=== PATIENT | male | born 1975 | race Caucasian/White ===

== ENCOUNTER 2017-08-09 09:42 | Day surgery (SDC) | payer MEDICAID ==
[2014-10-20 22:16] VITALS: BMI 26.7
[2017-08-09] MEDS ORDERED: Lactated Ringer's 1,000 ML IV ONE (10:16)
[2017-08-09] MEDS ORDERED: Lidocaine 2% MPF (5 ml) Inj ONE (10:55)
[2017-08-09] MEDS ORDERED: Propofol 10 mg/ml Inj (20 ML) ONE (10:55)
[2017-08-09 11:15] VITALS: TEMP 96.6
[2017-08-09 11:27] VITALS: BP 109/65; PULSE 59; RESP 14; O2SAT 100
== END 2017-08-09 11:37 | disposition home or self-care (01) ==
LOC: H.ENDO 09:42
PROVIDERS: ATTEND Internal Medicine Gastroenterology
DX: R10.13 Epigastric pain (principal); B96.81 Helicobacter pylori [H. pylori] as the cause of diseases classified elsewhere; K29.70 Gastritis, unspecified, without bleeding; K29.50 Unspecified chronic gastritis without bleeding; K21.9 Gastro-esophageal reflux disease without esophagitis
CPT/HCPCS: 43239; 88305; 88342; J2704; J7120

== ENCOUNTER 2017-08-20 23:01 | Emergency (ER) | payer MEDICAID ==
[2017-08-20 23:01] VITALS: BMI 26.7
[2017-08-20 23:25] VITALS: BP 107/62; PULSE 77; RESP 16; TEMP 97.8; O2SAT 98
--- NOTE | 2017-08-20 23:48 | ED PDOC ---
HPI: Chest Pain Time Seen by Provider: 08/20/17 23:18 Chief Complaint (Nursing): Chest Pain Chief Complaint (Provider): palpitations History Per: Patient History/Exam Limitations: no limitations Onset/Duration Of Symptoms: Days (4), Persistent Additional Complaint(s): Pt reports that for about 4 months he has had sudden onset midline lower chest pains that occur within an hour of sleeping and wakes him up. Associated with tachycardia, lightheadedness, shortness of breath, and feelings of doom. In addition during the day he has been having episodes of near syncope during the day, about twice a week. Lasts for about 5-10 minutes. He has to sit down, drink water and rest, which occur anytime during the day. But he does not ever black out. Workup with clinic so far involved endoscopy which only demonstrated gastritis. Has been recommended to have a sleep study. Symptoms now persist for 4 days, and chest pain continuous. He also reports that now when he goes to sleep, the feeling recurs over the course of the evening and not just one time. Reports he is afraid of going to sleep. Denies unintentional weight loss or fever. Denies alcohol or drug use. Denies any stressor at home or at work. Denies depression or anxiety, except about this issue. PMD [facility] [place] Past Medical History Reviewed: Historical Data, Nursing Documentation, Vital Signs Vital Signs: Last Vital Signs Temp 97.8 F 08/20/17 23:21 Pulse 77 08/20/17 23:21 Resp 16 08/20/17 23:21 BP 107/62 08/20/17 23:21 Pulse Ox 98 08/21/17 01:03 - Medical History PMH: No Chronic Diseases - Surgical History Surgical History: No Surg Hx - Family History Family History: States: No Known Family Hx - Social History Current smoker - smoking cessation education provided: No Alcohol: None Drugs: Denies - Home Medications Home Medications: Ambulatory Orders Medication Instructions Recorded No Known Home Med 08/09/17 - Allergies Allergies/Adverse Reactions: Allergies Allergy/AdvReac Type Severity Reaction Status Date / Time No Known Allergies Allergy Verified 08/09/17 10:19 Review of Systems ROS Statement: Except As Marked, All Systems Reviewed And Found Negative Constitutional: Positive for: Sweats, Weakness Cardiovascular: Positive for: Chest Pain, Light Headedness Respiratory: Positive for: Shortness of Breath Psych: Negative for: Anxiety, Depression, Psychosis, Suicidal ideation, Withdrawal Physical Exam - Reviewed Nursing Documentation Reviewed: Yes Vital Signs Reviewed: Yes - Physical Exam Appears: Positive for: Well, Non-toxic Head Exam: Positive for: ATRAUMATIC, NORMOCEPHALIC Skin: Positive for: Warm, Dry Eye Exam: Positive for: EOMI, PERRL, Conjunctival injection ENT: Negative for: Pharyngeal Erythema, Tonsillar Exudate Neck: Positive for: Painless ROM, Supple Cardiovascular/Chest: Positive for: Regular Rate, Rhythm, Chest Non Tender. Negative for: Murmur Respiratory: Positive for: Normal Breath Sounds. Negative for: Accessory Muscle Use, Respiratory Distress Gastrointestinal/Abdominal: Positive for: Soft. Negative for: Tenderness Back: Positive for: Normal Inspection. Negative for: Decreased ROM Extremity: Positive for: Normal ROM. 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 Negative for: Motor/Sensory Deficits - Laboratory Results Result Diagrams: 08/20/17 23:55 08/20/17 23:55 - ECG ECG: Positive for: Interpreted By Me ECG Rhythm: Positive for: Normal QRS, Normal ST Segment, Sinus Rhythm O2 Sat by Pulse Oximetry: 98 Pulse Ox Interpretation: Normal Disposition - Clinical Impression Clinical Impression: Chest pain - Disposition Disposition: Transfer of Care Disposition Time: 00:00 Condition: STABLE Forms: [employer] [facility] (Spanish) Patient Signed Over To: Zelalem Kiran Handoff Comments: Pending ER workup, reassessment and final ER disposition
[2017-08-21 00:06] LABS: BASO # 0.1 K/uL (0.0-0.2); BASO % 0.8 % (0.0-2.0); EOS # 0.1 K/uL (0.0-0.7); EOS % 1.4 % (0.0-4.0); HEMATOCRIT 45.4 % (35.0-51.0); LYMPH # 2.5 K/uL (1.0-4.3); LYMPH % 34.7 % (20.0-40.0); MEAN CELL VOLUME 84.9 fl (80.0-94.0); MEAN CORPUSCULAR HEMOGLOBIN 28.1 pg (27.0-31.0); MEAN CORPUSCULAR HGB CONC 33.1 g/dL (33.0-37.0); MONO # 0.8 K/uL (0.0-0.8); MONO % 10.7 % (0.0-10.0); NEUT # 3.7 K/uL (1.8-7.0); NEUT % 52.4 % (50.0-75.0); NRBC % 0.1 % (0.0-0.0); RED CELL DISTRIBUTION WIDTH 13.7 % (11.5-14.5); WHITE BLOOD COUNT 7.1 K/uL (4.8-10.8)
[2017-08-21 00:17] LABS: ALB/GLOB RATIO 1.3 (1.0-2.1); ALKALINE PHOSPHATASE 83 U/L (38-126); ALT/SGPT 109 U/L (21-72); AST/SGOT 51 U/L (17-59); BILIRUBIN,TOTAL 0.7 mg/dl (0.2-1.3); BLOOD UREA NITROGEN 14 mg/dl (9-20); CALCIUM 9.5 mg/dL (8.4-10.2); CARBON DIOXIDE 30 mmol/L (22-30); CHLORIDE 102 mmol/L (98-107); GFR AFRICAN-AMERICAN > 60; GLUCOSE,RANDOM 98 mg/dL (75-110); MAGNESIUM 2.2 MG/DL (1.6-2.3); PHOSPHOROUS 4.6 mg/dl (2.5-4.5); SODIUM 143 mmol/l (132-148); TOTAL PROTEIN 8.1 G/DL (6.3-8.2)
[2017-08-21 00:55] LABS: THYROID STIMULATING HORMONE 3.32 mIU/ML (0.46-4.68)
--- NOTE | 2017-08-21 01:03 | ED PDOC ---
- Laboratory Results Result Diagrams: 08/20/17 23:55 08/20/17 23:55 - ECG O2 Sat by Pulse Oximetry: 98 Pulse Ox Interpretation: Normal Medical Decision Making Medical Decision Makin PT. signed out to me from Dr. Allan 100 Pt. denies CP currently. Workup negative. Explained to patient the importance of cardiac workup including holter monitoring. Return precautions discussed. Disposition - Clinical Impression Clinical Impression: Chest pain - POA Present On Arrival: None - Disposition Referrals: Kaylyn Díaz MD [Family Provider] - Disposition: Routine/Home Disposition Time: 01:02 Condition: STABLE Additional Instructions: Please followup with your doctor for cardiac holter monitor and further cardiac testing. Instructions: Chest Pain (ED) Forms: [facility] (Jordanian)
--- NOTE | 2017-08-22 12:26 | CARD ---
APPROVED REPORT EKG Measurement Heart [id number] <Conclusion> Normal sinus rhythm Normal ECG
== END 2017-08-21 01:19 | disposition home or self-care (01) ==
LOC: H.ER 23:01
DX: R07.89 Other chest pain (principal)